=== PATIENT | female | born 1955 | race Caucasian/White ===

== ENCOUNTER → 2016-11-21 | Outpatient (REF) | payer OTHER ==
[~2016-11-21] MED LIST: ATELTAB PO; CALC600T7 PO; FOLITAB11 PO; IMIT100T PO; IMITREX SC; MULTLIQ7 PO; NIACPOW39 PO; SERT-138 PO; TYLE325T5 PO; VITA200016 PO; VITACAP8 PO
== END ==
LOC: M LAB REF 14:40
PROVIDERS: ATTEND Family Medicine
DX: K59.1 Functional diarrhea (principal); R14.3 Flatulence

== ENCOUNTER → 2017-05-22 | Outpatient (CLI) | payer OTHER ==
--- NOTE | 2017-05-22 14:55 | REPMRS ---
Patient History The patient states she had a clinical breast exam in 05/08 Patient is postmenopausal and is nulliparous. No known family history of cancer. Benign ultrasound-guided core biopsy of the left breast. Digital Woman Screen Mammo: May 22, 2017 - Exam #: [id number] Bilateral CC and MLO view(s) were taken. Technologist: Kristi Thakkar, Technologist Prior study comparison: May 16, 2016, digital woman screen mammo performed at [facility]. May 11, 2015, digital woman screen mammo performed at [facility]. FINDINGS: There are scattered fibroglandular densities. There has been no change in the appearance of the mammogram from the prior studies. There is a mild amount of residual fibroglandular tissue which is fairly symmetric. There is no interval development of dominant mass, architectural distortion, or clustered microcalcification suggestive of malignancy. Needle biopsy clip in small nodule in left breast unchanged from priors at benign biopsy site. There are scattered, small, benign calcifications of doubtful clinical significance. Scattered lymph nodes are seen in the axilla. No significant changes when compared with prior studies. ASSESSMENT: BI-RADS/ACR category 2 mammogram. Benign finding(s). Recommendation Routine screening mammogram in 1 year (for women over age 40). This mammogram was interpreted with the aid of an FDA-approved computer-aided dectection system. A. Negative x-ray reports should not delay biopsy if a dominant or clinically suspicious mass is present. B. Four to eight percent of cancers are not identified by mammography. C. Adenosis and dense breast may obscure an underlying neoplasm. Electronically Signed By: Celio Posada MD 05/22/17 [id number]
== END ==
LOC: M WHC 10:25
PROVIDERS: ATTEND Nurse Practitioner Women's Health
DX: Z12.31 Encounter for screening mammogram for malignant neoplasm of breast (principal); Z78.0 Asymptomatic menopausal state; Z92.89 Personal history of other medical treatment

== ENCOUNTER → 2017-05-22 | Outpatient (CLI) | payer OTHER ==
--- NOTE | 2017-05-23 13:19 | DEXA ---
AP SPINE L1 - L4 0.907 -2.3 -1.1 LT FEMUR TOTAL 0.969 -0.3 0.6 RT FEMUR TOTAL 0.898 -0.9 0.1 TOTAL BODY TOTAL OTHER DUAL FEMUR FRAX* ASSESSMENT Risk factors: History of fracture (adult). 10 year probability of fracture Major osteoporotic fracture 13.5 % Hip fracture 1.5 % COMMENTS: There is low bone density of the hips. There is low bone density of the left hip based on femoral neck T score -1.8 left There is low bone density of the right hip based on femoral neck T score -1.8 right. The decreased density of the spine does represent a significant change since 09/2013. The increased density of the left hip does represent a significant change since 02/01/2013. The decreased density of the right hip does represent a significant change. The density of the spine is decreased 6.1% since the initial exam on 07/16/2007. The spine density has decreased 1.7% since the most recent exam on 02/01/2013. The density of the left hip has decreased 8.7% since the initial exam on 2006. The density of the left hip has increased 2.8% since the most recent exam on 09/2013. The density of the right hip has decreased 11.4% since the initial exam on 07/16. The density of the right hip has decreased 2.6% since the most recent exam on . FOLLOW-UP: Recommendation for the next bone density exam: 2 years. FUENTES
== END ==
LOC: M WHC 10:30
PROVIDERS: ATTEND Family Medicine
DX: M81.0 Age-related osteoporosis without current pathological fracture (principal); M85.80 Other specified disorders of bone density and structure, unspecified site

== ENCOUNTER → 2018-07-11 | Outpatient (CLI) | payer OTHER | LOC: M WHC 15:04 | DX: Z12.31 Encounter for screening mammogram for malignant neoplasm of breast (principal) | CPT/HCPCS: 77067 ==

== ENCOUNTER → 2019-09-06 | Outpatient (CLI) | payer OTHER ==
--- NOTE | 2019-09-06 15:26 | REPMRS ---
Patient History The patient states she had a clinical breast exam in 08/2019. Patient is postmenopausal and is nulliparous. No known family history of cancer. Benign ultrasound-guided core biopsy of the left breast. No Hormone Replacement Therapy Digital Woman Screen Mammo: September 06, 2019 - Exam #: [id number] Bilateral CC and MLO view(s) were taken. Technologist: Lin Galarza, Technologist Prior study comparison: July 11, 2018, bilateral digital woman screen mammo performed at [facility]. May 22, 2017, digital woman screen mammo performed at [facility]. May 16, 2016, digital woman screen mammo performed at [facility] [employer] [facility]. FINDINGS: There are scattered fibroglandular densities. There has been no change in the appearance of the mammogram from the prior studies. There is a mild amount of scattered fibroglandular density which is fairly symmetric. There is no interval development of dominant mass, architectural distortion, or grouped microcalcification suggestive of malignancy. 3-D tomosynthesis shows no additional findings. Assessment: BI-RADS/ACR category 2 mammogram. Benign Findings. Recommendation Routine screening mammogram of both breasts in 1 year (for women over age 40). This patient's Lifetime Breast Cancer Risk is estimated at 7.9 %. This mammogram was interpreted with the aid of an FDA-approved computer-aided dectection system. Electronically Signed By: Tree Tabor MD 09/06/19 [id number]
== END ==
LOC: M WHC 11:27
PROVIDERS: ATTEND Nurse Practitioner Women's Health
DX: Z12.31 Encounter for screening mammogram for malignant neoplasm of breast (principal)

== ENCOUNTER → 2020-04-27 | Outpatient (REF) | payer OTHER | LOC: M LAB REF 11:28 | PROVIDERS: ATTEND Family Medicine | DX: J31.0 Chronic rhinitis (principal) ==

== ENCOUNTER → 2020-09-11 | Outpatient (CLI) | payer OTHER ==
--- NOTE | 2020-09-11 12:52 | REPMRS ---
Patient History The patient states she has not had a clinical breast exam in over a year. No known family history of cancer. Benign ultrasound-guided core biopsy of the left breast. No Hormone Replacement Therapy 3D TOMOSYNTHESIS WAS PERFORMED. [facility] lifetime risk for breast cancer is 7.6%. Volpara breast density a. Digital Woman Screen Mammo: September 11, 2020 - Exam #: [id number] Bilateral CC and MLO view(s) were taken. Technologist: Kristi Thakkar, Technologist Prior study comparison: September 06, 2019, bilateral digital woman screen mammo performed at [facility]. July 11, 2018, bilateral digital woman screen mammo performed at [facility]. FINDINGS: There are scattered fibroglandular densities. There has been no change in the appearance of the mammogram from the prior studies. There is a mild amount of residual fibroglandular tissue which is fairly symmetric. There is no interval development of dominant mass, architectural distortion, or clustered microcalcification suggestive of malignancy. Assessment: BI-RADS/ACR category 1 mammogram. Negative Mammogram. Recommendation Routine screening mammogram in 1 year (for women over age 40). This mammogram was interpreted with the aid of an FDA-approved computer-aided dectection system. Electronically Signed By: Baltazar Choudhury MD 09/11/20 [id number]
== END ==
LOC: M WHC 10:12
PROVIDERS: ATTEND Nurse Practitioner Women's Health
DX: Z12.31 Encounter for screening mammogram for malignant neoplasm of breast (principal)

== ENCOUNTER → 2021-02-09 | Outpatient (CLI) | payer OTHER ==
--- NOTE | 2021-02-09 14:38 | REP ---
INDICATION: THYROID NODULE. COMPARISON: None FINDINGS: The right lobe of the thyroid gland measures 3.6 x 1.6 x 1.2 cm in the left lobe measures 4.7 x 1.8 x 1.5 cm. The isthmus measures 3.6 mm. In the upper pole of the right lobe there is a 7 x 6 x 6 mm sized solid nodule. In the lower pole there is a 4 x 2 x 4 mm size nodule In the left lobe upper pole region there is a 1.2 x 0.8 x 0.9 cm sized complex cystic and solid nodule. More inferior in the midpole region there is a 6 x 4 x 6 mm size nodule and adjacent to that laterally there is a 6 x 5 x 6 mm sized echogenic focus which casts and acoustic shadow consistent with calcific deposition. IMPRESSION: Multiple thyroid lesions as described above. <Electronically signed by Andrew Estevez > 02/09/21 [id number]
== END ==
LOC: M RAD 13:29
PROVIDERS: ATTEND Family Medicine
DX: E04.1 Nontoxic single thyroid nodule (principal)

== ENCOUNTER → 2021-04-02 | Outpatient (REF) | payer OTHER | LOC: M LAB REF 18:58 | PROVIDERS: ATTEND Internal Medicine Endocrinology, Diabetes & Metabolism | DX: E04.2 Nontoxic multinodular goiter (principal) ==

== ENCOUNTER → 2021-11-05 | Outpatient (CLI) | payer OTHER | LOC: M WHC 08:07 | PROVIDERS: ATTEND Family Medicine | DX: Z12.31 Encounter for screening mammogram for malignant neoplasm of breast (principal) ==

== ENCOUNTER 2022-04-06 09:13 | Emergency (ER) | payer MEDICARE, OTHER ==
[~2022-04-06] VITALS: Ht 162.6 cm; Wt 113.6 kg
[2022-04-06] MEDS ORDERED: ECOT81TA5 PO (09:23)
[2022-04-06] MEDS ORDERED: ATOR1TAB21 PO (09:23)
[2022-04-06] MEDS ORDERED: METO1TAB32 PO (09:23)
[2022-04-06] MEDS: ACETAMINOPHEN 500 MG TAB PO ONE ×2 (10:35→11:11)
[2022-04-06] MEDS ORDERED: NS 1,000 ML IV ONE (10:35)
[2022-04-06] MEDS ORDERED: ONDANSETRON 4MG/2ML VIAL IV ONE ×2 (10:35→13:45)
[2022-04-06 11:33] LABS: BASO % 0.1 % (0.0-1.0); EOS % 0.3 % (0.0-3.0); HEMATOCRIT 40.5 % (36.0-47.0); LYMPH # 0.9 10^3/uL (1.5-5.0); LYMPH % 11.9 % (24.0-44.0); MEAN CORPUSCULAR HEMOGLOBIN 28.6 pg (27.0-33.0); MEAN CORPUSCULAR HGB CONC 32.1 g/dl (32.0-36.5); MEAN CORPUSCULAR VOLUME 89.2 fl (80.0-96.0); MONO # 0.3 10^3/uL (0.0-0.8); MONO % 4.7 % (2.0-8.0); NEUTROPHILS # 5.9 10^3/uL (1.5-8.5); NEUTROPHILS % 82.6 % (36.0-66.0); PLATELET COUNT, AUTOMATED 173 10^3/uL (150-450); RED BLOOD COUNT 4.54 10^6/uL (4.00-5.40); WHITE BLOOD COUNT 7.2 10^3/uL (4.0-10.0)
[2022-04-06] MEDS ORDERED: KETOROLAC 30 MG/ML 1ML VIAL IV ONE (11:50)
[2022-04-06 12:03] LABS: BLOOD UREA NITROGEN 9 MG/DL (7-18); CARBON DIOXIDE LEVEL 26 MEQ/L (21-32); CHLORIDE LEVEL 111 MEQ/L (98-107); CREATININE FOR GFR 0.72 MG/DL (0.55-1.30); GLOMERULAR FILTRATION RATE > 60.0 (>45); GLUCOSE, FASTING 125 MG/DL (70-100); POTASSIUM SERUM 4.5 MEQ/L (3.5-5.1); SODIUM LEVEL 142 MEQ/L (136-145)
[2022-04-06] MEDS ORDERED: PROCHLORPERAZINE 10MG/2ML VIAL (J0780 PER 1) IV ONE (13:45)
[2022-04-06] MEDS ORDERED: ONDA4TAB6 PO (14:18)
[2022-04-06] MEDS ORDERED: BENZ200C70 PO (14:23)
[2022-04-06] MEDS ORDERED: BENZ1LOZ9 PO (14:23)
[2022-04-06 14:38] VITALS: BP 157/88
== END 2022-04-06 14:41 | disposition home or self-care (01) ==
LOC: M ED 09:13
DX: U07.1 COVID-19 (principal); J02.9 Acute pharyngitis, unspecified; R51.9 Headache, unspecified; R05.9 Cough, unspecified; I25.10 Atherosclerotic heart disease of native coronary artery without angina pectoris; Z88.1 Allergy status to other antibiotic agents; Z79.899 Other long term (current) drug therapy; Z79.82 Long term (current) use of aspirin
CPT/HCPCS: 80048; 85025; 93005; 96361; 96374; 96375; 96376; 99284; J0780; J1885; J2405

== ENCOUNTER 2022-04-07 20:25 | Inpatient (IN) | payer MEDICARE ==
[~2022-04-07] VITALS: Ht 165.1 cm; Wt 120.2 kg
[~2022-04-07 20:25] MED LIST changes: +ATOR1TAB21 PO; +BENZ1LOZ9 PO; +BENZ200C70 PO; +ECOT81TA5 PO; +METO1TAB32 PO; +ONDA4TAB6 PO
[2022-04-07] MEDS ORDERED: METOPROLOL 5 MG/5 ML VIAL IV STA (21:30)
[2022-04-07 22:04] LABS: BASO % 0.2 % (0.0-1.0); EOS % 0.5 % (0.0-3.0); HEMATOCRIT 38.3 % (36.0-47.0); HEMOGLOBIN 12.6 g/dl (12.0-15.5); LYMPH # 0.7 10^3/uL (1.5-5.0); LYMPH % 11.3 % (24.0-44.0); MEAN CORPUSCULAR HGB CONC 32.9 g/dl (32.0-36.5); MONO # 0.3 10^3/uL (0.0-0.8); NEUTROPHILS # 4.8 10^3/uL (1.5-8.5); NEUTROPHILS % 82.5 % (36.0-66.0); PLATELET COUNT, AUTOMATED 157 10^3/uL (150-450); RED BLOOD COUNT 4.35 10^6/uL (4.00-5.40); WHITE BLOOD COUNT 5.8 10^3/uL (4.0-10.0)
[2022-04-07 22:32] LABS: CK-MB VALUE MASS < 1.0 NG/ML (<3.6); CPK CREATINE PHOSPHOKINASE 250 U/L (26-192)
[2022-04-07 22:40] LABS: RSV AMPLIFICATION NEGATIVE (NEGATIVE)
[2022-04-07] MEDS ORDERED: hydrALAZINE 20MG/ML 1ML VIAL (J0360 PER 20MG) IV STA (23:11)
[2022-04-07] MEDS ORDERED: ACETAMINOPHEN TAB 650MG DOSE (2X325MG) PO ONE (23:25)
[2022-04-07] MEDS ORDERED: ONDANSETRON 4MG/2ML VIAL IV ONE (23:40)
[2022-04-07] MEDS ORDERED: MORPHINE 2 MG/ML 1ML VIAL IV ONE (23:55)
[2022-04-08] VITALS (11 sets, daily range): BP systolic 159–189; BP diastolic 72–86; O2SAT 93–96
[2022-04-08 00:05] LABS: ALBUMIN 3.7 GM/DL (3.2-5.2); ALT/SGPT 48 U/L (12-78); BILIRUBIN,TOTAL 0.6 MG/DL (0.2-1.0); BLOOD UREA NITROGEN 8 MG/DL (7-18); CALCIUM LEVEL 8.5 MG/DL (8.8-10.2); CARBON DIOXIDE LEVEL 28 MEQ/L (21-32); CHLORIDE LEVEL 110 MEQ/L (98-107); CREATININE FOR GFR 0.78 MG/DL (0.55-1.30); GLOMERULAR FILTRATION RATE > 60.0 (>45); GLUCOSE, FASTING 151 MG/DL (70-100); MAGNESIUM LEVEL 2.1 MG/DL (1.8-2.4); POTASSIUM SERUM 3.7 MEQ/L (3.5-5.1); SODIUM LEVEL 144 MEQ/L (136-145); TOTAL PROTEIN 6.8 GM/DL (6.4-8.2)
[2022-04-08] MEDS: NS 1,000 ML IV SCH ×2 (00:40→14:39)
[2022-04-08] MEDS ORDERED: ACETAMINOPHEN *IV* 1,000 MG in IV 1 EA IV ONE ×2 (01:00→16:40)
[2022-04-08] MEDS ORDERED: PANTOPRAZOLE 40MG VIAL IV ONE (02:00)
[2022-04-08] MEDS: ONDANSETRON 4MG/2ML VIAL IV PRN ×4 (03:56→22:54)
[2022-04-08] MEDS: HEPARIN SOD (PORCINE) 5000UNITS/ML 1ML VIAL/SYRINGE SC SCH ×4 (06:00→22:54)
[2022-04-08] MEDS: hydrALAZINE 20MG/ML 1ML VIAL (J0360 PER 20MG) IV PRN ×3 (06:23→22:54)
[2022-04-08] MEDS ORDERED: OXYMETAZOLINE 0.05% NASAL SPRAY (AFRIN) SCH (09:00)
[2022-04-08] MEDS ORDERED: FLUTICASONE PROP 0.05% NASAL SPRAY 16 GM (FLONASE) NARES SCH ×2 (09:00→21:00)
[2022-04-08] MEDS ORDERED: hydrALAZINE 20MG/ML 1ML VIAL (J0360 PER 20MG) IV STA (10:39)
[2022-04-08] MEDS ORDERED: ISOVUE-370 76% 100ML VIAL As Ordered ONE (11:27)
[2022-04-08] MEDS ORDERED: SUMAtriptan SUCCINATE 6MG/0.5ML VIAL SC PRN (11:40)
[2022-04-08] MEDS: AMPICILLIN SOD/SULBACTAM SOD 3 GM in D5W MINI-BAG PLUS 100 ML IV SCH ×2 (14:39→22:55)
[2022-04-08] MEDS ORDERED: REMDESIVIR 200 MG in NS 250 ML IV ONE (16:00)
[2022-04-08] MEDS ORDERED: SODIUM CHLORIDE 0.9% INJ 10 ML SYR IV ONE (18:00)
[2022-04-08] MEDS: FLUTICASONE PROP 0.05% NASAL SPRAY 16 GM (FLONASE) NARES SCH (18:35)
[2022-04-08] MEDS: PANTOPRAZOLE 40MG VIAL IV SCH (22:54)
[2022-04-09] VITALS (9 sets, daily range): BP systolic 150–186; BP diastolic 70–92; O2SAT 96–99
[2022-04-09] MEDS: AMPICILLIN SOD/SULBACTAM SOD 3 GM in D5W MINI-BAG PLUS 100 ML IV SCH ×4 (03:45→21:48)
[2022-04-09] MEDS: NS 1,000 ML IV SCH (03:51)
[2022-04-09] MEDS: HEPARIN SOD (PORCINE) 5000UNITS/ML 1ML VIAL/SYRINGE SC SCH ×2 (04:42→17:57)
[2022-04-09] MEDS: hydrALAZINE 20MG/ML 1ML VIAL (J0360 PER 20MG) IV PRN ×3 (04:43→21:49)
[2022-04-09] MEDS: ONDANSETRON 4MG/2ML VIAL IV PRN ×2 (04:43→11:10)
[2022-04-09] MEDS: MORPHINE 2 MG/ML 1ML VIAL IV PRN ×2 (04:43→11:11)
[2022-04-09 06:00] LABS: HEMATOCRIT 38.9 % (36.0-47.0); HEMOGLOBIN 12.6 g/dl (12.0-15.5); MEAN CORPUSCULAR HEMOGLOBIN 28.8 pg (27.0-33.0); MEAN CORPUSCULAR HGB CONC 32.4 g/dl (32.0-36.5); MEAN CORPUSCULAR VOLUME 88.8 fl (80.0-96.0); PLATELET COUNT, AUTOMATED 162 10^3/uL (150-450); RED BLOOD COUNT 4.38 10^6/uL (4.00-5.40); WHITE BLOOD COUNT 5.4 10^3/uL (4.0-10.0)
[2022-04-09 06:18] LABS: ALBUMIN 3.4 GM/DL (3.2-5.2); ALT/SGPT 46 U/L (12-78); BILIRUBIN,DIRECT 0.4 MG/DL (0.0-0.2); BILIRUBIN,TOTAL 0.5 MG/DL (0.2-1.0); BLOOD UREA NITROGEN 10 MG/DL (7-18); CALCIUM LEVEL 8.3 MG/DL (8.8-10.2); CARBON DIOXIDE LEVEL 25 MEQ/L (21-32); CHLORIDE LEVEL 110 MEQ/L (98-107); CREATININE FOR GFR 0.72 MG/DL (0.55-1.30); GLOMERULAR FILTRATION RATE > 60.0 (>45); GLUCOSE, FASTING 117 MG/DL (70-100); POTASSIUM SERUM 3.2 MEQ/L (3.5-5.1); SODIUM LEVEL 142 MEQ/L (136-145); TOTAL PROTEIN 6.9 GM/DL (6.4-8.2)
[2022-04-09] MEDS: FLUTICASONE PROP 0.05% NASAL SPRAY 16 GM (FLONASE) NARES SCH ×2 (08:21→21:49)
[2022-04-09] MEDS: KCL 40MEQ IN D5/0.45NS 1000ML 1,000 ML IV SCH ×2 (09:25→21:48)
[2022-04-09] MEDS ORDERED: CALC600T60 PO (09:55)
[2022-04-09] MEDS ORDERED: PRESCAP PO (09:55)
[2022-04-09] MEDS ORDERED: VITA100093 PO (09:55)
[2022-04-09] MEDS ORDERED: HOME MED LIST COMPLETE! XX SCH (09:55)
[2022-04-09] MEDS ORDERED: SUMA100T2 PO (09:55)
[2022-04-09] MEDS ORDERED: ZOLO100T PO (09:55)
[2022-04-09] MEDS ORDERED: BENZ200C70 PO (09:55)
[2022-04-09] MEDS ORDERED: ONDA4TAB6 PO (09:55)
[2022-04-09] MEDS ORDERED: ACET1TAB55 PO (09:55)
[2022-04-09] MEDS ORDERED: COQ1200C3 PO (09:55)
[2022-04-09] MEDS: SERTRALINE 100 MG TAB PO SCH (11:11)
[2022-04-09] MEDS ORDERED: PROCHLORPERAZINE 10MG/2ML VIAL (J0780 PER 1) IV PRN (13:55)
[2022-04-09] MEDS: diphenhydrAMINE 50MG/ML VIAL (J1200) IV PRN ×2 (14:49→21:48)
[2022-04-09] MEDS: REMDESIVIR 100 MG in NS 250 ML IV SCH (16:10)
[2022-04-09] MEDS: SODIUM CHLORIDE 0.9% INJ 10 ML SYR IV SCH (17:42)
[2022-04-09] MEDS: PANTOPRAZOLE 40MG VIAL IV SCH (21:48)
[2022-04-09] MEDS: KETOROLAC 30 MG/ML 1ML VIAL IV PRN (21:49)
[2022-04-10] VITALS (9 sets, daily range): BP systolic 156–175; BP diastolic 74–83; O2SAT 97–99
[2022-04-10] MEDS: AMPICILLIN SOD/SULBACTAM SOD 3 GM in D5W MINI-BAG PLUS 100 ML IV SCH ×4 (03:30→20:56)
[2022-04-10] MEDS: hydrALAZINE 20MG/ML 1ML VIAL (J0360 PER 20MG) IV PRN ×3 (03:30→17:25)
[2022-04-10] MEDS: ONDANSETRON 4MG/2ML VIAL IV PRN (03:30)
[2022-04-10] MEDS: KETOROLAC 30 MG/ML 1ML VIAL IV PRN (03:31)
[2022-04-10 06:07] LABS: HEMATOCRIT 39.3 % (36.0-47.0); HEMOGLOBIN 12.6 g/dl (12.0-15.5); MEAN CORPUSCULAR HGB CONC 32.1 g/dl (32.0-36.5); MEAN CORPUSCULAR VOLUME 90.3 fl (80.0-96.0); PLATELET COUNT, AUTOMATED 172 10^3/uL (150-450); RED BLOOD COUNT 4.35 10^6/uL (4.00-5.40); WHITE BLOOD COUNT 6.3 10^3/uL (4.0-10.0)
[2022-04-10] MEDS: HEPARIN SOD (PORCINE) 5000UNITS/ML 1ML VIAL/SYRINGE SC SCH ×2 (06:37→17:19)
[2022-04-10 06:40] LABS: BLOOD UREA NITROGEN 11 MG/DL (7-18); CALCIUM LEVEL 8.2 MG/DL (8.8-10.2); CARBON DIOXIDE LEVEL 25 MEQ/L (21-32); CHLORIDE LEVEL 110 MEQ/L (98-107); CREATININE FOR GFR 0.88 MG/DL (0.55-1.30); GLOMERULAR FILTRATION RATE > 60.0 (>45); GLUCOSE, FASTING 163 MG/DL (70-100); POTASSIUM SERUM 3.4 MEQ/L (3.5-5.1); SODIUM LEVEL 142 MEQ/L (136-145)
[2022-04-10] MEDS: FLUTICASONE PROP 0.05% NASAL SPRAY 16 GM (FLONASE) NARES SCH ×2 (08:44→20:57)
[2022-04-10] MEDS: SERTRALINE 100 MG TAB PO SCH (08:44)
[2022-04-10] MEDS: FIORICET TAB PO PRN ×2 (08:56→17:25)
[2022-04-10] MEDS: amLODIPine 5 MG TAB PO SCH (10:01)
[2022-04-10] MEDS: SODIUM CHLORIDE NASAL 0.65% SPRAY BTL (OCEAN) SCH (12:34)
[2022-04-10] MEDS: KCL 40MEQ IN D5/0.45NS 1000ML 1,000 ML IV SCH (14:31)
[2022-04-10] MEDS: REMDESIVIR 100 MG in NS 250 ML IV SCH (16:03)
[2022-04-10] MEDS: SODIUM CHLORIDE 0.9% INJ 10 ML SYR IV SCH (17:19)
[2022-04-10] MEDS: PANTOPRAZOLE 40MG VIAL IV SCH (20:56)
[2022-04-11] VITALS (7 sets, daily range): BP systolic 140–174; BP diastolic 60–80; O2SAT 96–99
[2022-04-11] MEDS: hydrALAZINE 20MG/ML 1ML VIAL (J0360 PER 20MG) IV PRN (00:55)
[2022-04-11] MEDS: KETOROLAC 30 MG/ML 1ML VIAL IV PRN (00:55)
[2022-04-11] MEDS: AMPICILLIN SOD/SULBACTAM SOD 3 GM in D5W MINI-BAG PLUS 100 ML IV SCH ×2 (02:27→08:11)
[2022-04-11 06:10] LABS: HEMATOCRIT 37.5 % (36.0-47.0); MEAN CORPUSCULAR HEMOGLOBIN 28.6 pg (27.0-33.0); MEAN CORPUSCULAR VOLUME 89.3 fl (80.0-96.0); PLATELET COUNT, AUTOMATED 174 10^3/uL (150-450); WHITE BLOOD COUNT 5.7 10^3/uL (4.0-10.0)
[2022-04-11] MEDS: HEPARIN SOD (PORCINE) 5000UNITS/ML 1ML VIAL/SYRINGE SC SCH ×2 (06:19→18:01)
[2022-04-11 06:36] LABS: BLOOD UREA NITROGEN 10 MG/DL (7-18); CALCIUM LEVEL 8.5 MG/DL (8.8-10.2); CARBON DIOXIDE LEVEL 24 MEQ/L (21-32); CHLORIDE LEVEL 112 MEQ/L (98-107); CREATININE FOR GFR 0.76 MG/DL (0.55-1.30); GLOMERULAR FILTRATION RATE > 60.0 (>45); GLUCOSE, FASTING 121 MG/DL (70-100); POTASSIUM SERUM 3.8 MEQ/L (3.5-5.1); SODIUM LEVEL 145 MEQ/L (136-145)
[2022-04-11] MEDS: KCL 40MEQ IN D5/0.45NS 1000ML 1,000 ML IV SCH (08:11)
[2022-04-11] MEDS: amLODIPine 5 MG TAB PO SCH (08:11)
[2022-04-11] MEDS: FLUTICASONE PROP 0.05% NASAL SPRAY 16 GM (FLONASE) NARES SCH ×3 (08:12→21:00)
[2022-04-11] MEDS: SERTRALINE 100 MG TAB PO SCH (08:12)
[2022-04-11] MEDS ORDERED: **hydrALAZINE HCL** 25 MG TAB PO PRN (10:10)
[2022-04-11] MEDS: SODIUM CHLORIDE NASAL 0.65% SPRAY BTL (OCEAN) SCH (11:08)
[2022-04-11] MEDS: AUGMENTIN 875 MG TAB PO SCH ×2 (13:27→21:19)
[2022-04-11] MEDS ORDERED: lisinopriL 5 MG TAB PO SCH (21:00)
[2022-04-11] MEDS: PANTOPRAZOLE 40MG VIAL IV SCH (21:20)
[2022-04-12] VITALS: BP 150/80; O2SAT 97
[2022-04-12 04:00] VITALS: BP 150/74; O2SAT 97
[2022-04-12 04:11] LABS: HEMATOCRIT 34.7 % (36.0-47.0); HEMOGLOBIN 11.2 g/dl (12.0-15.5); MEAN CORPUSCULAR HEMOGLOBIN 28.8 pg (27.0-33.0); MEAN CORPUSCULAR HGB CONC 32.3 g/dl (32.0-36.5); MEAN CORPUSCULAR VOLUME 89.2 fl (80.0-96.0); PLATELET COUNT, AUTOMATED 160 10^3/uL (150-450); RED BLOOD COUNT 3.89 10^6/uL (4.00-5.40); WHITE BLOOD COUNT 6.2 10^3/uL (4.0-10.0)
[2022-04-12 04:42] LABS: BLOOD UREA NITROGEN 12 MG/DL (7-18); CALCIUM LEVEL 8.2 MG/DL (8.8-10.2); CARBON DIOXIDE LEVEL 26 MEQ/L (21-32); CHLORIDE LEVEL 111 MEQ/L (98-107); CREATININE FOR GFR 0.77 MG/DL (0.55-1.30); GLOMERULAR FILTRATION RATE > 60.0 (>45); GLUCOSE, FASTING 123 MG/DL (70-100); POTASSIUM SERUM 3.9 MEQ/L (3.5-5.1); SODIUM LEVEL 144 MEQ/L (136-145)
[2022-04-12] MEDS: HEPARIN SOD (PORCINE) 5000UNITS/ML 1ML VIAL/SYRINGE SC SCH (06:01)
[2022-04-12] MEDS ORDERED: LOPERAMIDE 2 MG CAPLET PO PRN (07:30)
[2022-04-12] MEDS ORDERED: LOPERAMIDE 2 MG CAPLET PO ONE (07:30)
[2022-04-12] MEDS ORDERED: AMLO1TAB24 PO (07:34)
[2022-04-12] MEDS ORDERED: AMOX875T2 PO (07:34)
[2022-04-12] MEDS ORDERED: amLODIPine 5 MG TAB PO ONE (07:35)
[2022-04-12] MEDS ORDERED: BACI1CAP PO (07:36)
[2022-04-12 08:00] VITALS: BP 138/62; O2SAT 97
[2022-04-12] MEDS: FLUTICASONE PROP 0.05% NASAL SPRAY 16 GM (FLONASE) NARES SCH (08:29)
[2022-04-12 08:30] VITALS: BP 138/62
[2022-04-12] MEDS: AUGMENTIN 875 MG TAB PO SCH (08:30)
[2022-04-12] MEDS: SERTRALINE 100 MG TAB PO SCH (08:30)
[2022-04-12] MEDS ORDERED: METOPROLOL SUCC *XL* 25MG TAB (TopROL *XL*) PO SCH (09:00)
[2022-04-12] MEDS: SODIUM CHLORIDE NASAL 0.65% SPRAY BTL (OCEAN) SCH (11:28)
[2022-04-12 12:00] VITALS: BP 140/76
[2022-04-12] MEDS ORDERED: LOPE2CA PO (12:14)
== END 2022-04-12 15:52 | disposition home or self-care (01) | DRG 304 ==
LOC: M ED 20:25 → M ED INP 20:26 → ENRESERV 04-08 11:04 → M PCU 04-08 14:08 → OBSVTOIN 04-08 15:27
PROVIDERS: ADMIT Internal Medicine; ATTEND General Practice
DX: I16.0 Hypertensive urgency (principal); U07.1 COVID-19; Z68.41 Body mass index [BMI] 40.0-44.9, adult; F19.239 Other psychoactive substance dependence with withdrawal, unspecified; E78.00 Pure hypercholesterolemia, unspecified; I10 Essential (primary) hypertension; J01.90 Acute sinusitis, unspecified; E66.9 Obesity, unspecified; Z79.899 Other long term (current) drug therapy; K52.9 Noninfective gastroenteritis and colitis, unspecified; F32.A Depression, unspecified; E87.6 Hypokalemia; Z88.8 Allergy status to other drugs, medicaments and biological substances; R51.9 Headache, unspecified

== ENCOUNTER → 2023-01-16 | Outpatient (CLI) | payer MEDICARE ==
[~2023-01-16] MED LIST changes: +ACET1TAB55 PO; +AMLO1TAB24 PO; +AMOX875T2 PO; +BACI1CAP PO; +BARIUM SULFATE 700 MG TABLET (E-Z-DISK) As Ordered ONE; +CALC600T60 PO; +COQ1200C3 PO; +E-Z-PAQUE 96% w/w SUSP 176GM BTL As Ordered ONE; +LOPE2CA PO; +PRESCAP PO; +SUMA100T2 PO; +VARIBAR NECTAR 40% w/v 240ML SUSP BTL As Ordered ONE; +VARIBAR PUDDING 40% w/v 230ML TUBE As Ordered ONE; +VITA100093 PO; +ZOLO100T PO
== END ==
LOC: M RAD 10:51
PROVIDERS: ATTEND Family Medicine
DX: R13.10 Dysphagia, unspecified (principal)

== ENCOUNTER → 2023-02-17 | Outpatient (CLI) | payer MEDICARE ==
[~2023-02-17] MED LIST changes: -BARIUM SULFATE 700 MG TABLET (E-Z-DISK) As Ordered ONE; -E-Z-PAQUE 96% w/w SUSP 176GM BTL As Ordered ONE; -VARIBAR NECTAR 40% w/v 240ML SUSP BTL As Ordered ONE; -VARIBAR PUDDING 40% w/v 230ML TUBE As Ordered ONE
== END ==
LOC: M WHC 07:26
PROVIDERS: ATTEND Nurse Practitioner Family
DX: Z12.31 Encounter for screening mammogram for malignant neoplasm of breast (principal)

== ENCOUNTER → 2024-02-23 | Outpatient (REF) | payer MEDICARE | LOC: M SFHCWAGY 15:11 | PROVIDERS: ATTEND Nurse Practitioner Family | DX: Z12.4 Encounter for screening for malignant neoplasm of cervix (principal); N95.2 Postmenopausal atrophic vaginitis | CPT/HCPCS: 87624; G0123 ==

== ENCOUNTER → 2024-02-23 | Outpatient (CLI) | payer MEDICARE | LOC: M WHC 07:42 | PROVIDERS: ATTEND Nurse Practitioner Family | DX: Z12.31 Encounter for screening mammogram for malignant neoplasm of breast (principal) ==